=== PATIENT | female | born 1945 | race Caucasian/White ===

== ENCOUNTER 2022-06-12 12:05 | Inpatient (IN) | payer OTHER ==
[~2022-06-12] VITALS: Ht 167.6 cm; Wt 52.9 kg
[2022-06-12] MEDS ORDERED: SODIUM CHLORIDE 0.9% 500 ML IVB ONE (12:15)
[2022-06-12 12:48] LABS: Basophils # (auto) 0 10 ^3/uL (0-0.2); Basophils % (auto) 0.5 % (0.0-2.0); Eosinophils # (auto) 0 10 ^3/uL (0-0.8); Eosinophils % (auto) 0.1 % (0.0-7.0); Hematocrit 42.6 % (36.0-46.0); Hemoglobin 14.2 g/dL (12.2-16.2); Lymphocytes # (auto) 1.3 10 ^3/uL (0.4-5.4); Lymphocytes % (auto) 12.7 % (10.0-50.0); Mean Corpuscular Hemoglobin 31.9 pg (28.0-32.0); Mean Corpuscular Hgb Conc. 33.3 g/dL (32.0-36.0); Mean Corpuscular Volume 95.9 fL (80.0-100.0); Monocytes # (auto) 0.5 10 ^3/uL (0-1.3); Monocytes % (auto) 5.2 % (0.0-12.0); Neutrophils # (auto) 8.3 10 ^3/uL (1.6-8.6); Neutrophils % (auto) 81.5 % (37.0-80.0); Red Blood Cells 4.44 10^6/uL (4.0-5.20); Red Cell Distribution Width 13.4 % (11.8-14.3); White Blood Cell 10.1 10^3/uL (4.4-10.8)
[2022-06-12 13:08] LABS: Albumin 3.7 g/dL (3.4-5.0); Anion Gap 8 (5-15); Blood Alcohol < 3.0 mg/dL (0-5); Blood Urea Nitrogen 10 mg/dL (7-18); Calcium 8.9 mg/dL (8.5-10.1); Carbon Dioxide 28 mmol/L (21-32); Chloride 103 mmol/L (98-107); Glucose 117 mg/dL (74-106); Magnesium 2.3 mg/dL (1.6-2.6); Potassium 3.6 mmol/L (3.5-5.1); Sodium 139 mmol/L (136-145)
[2022-06-12 13:11] LABS: Alanine Aminotransferase 551 U/L (13-56); Alkaline Phosphatase 190 U/L (45-117); Aspartate Aminotransferase 116 U/L (15-37); BUN/Creatinine Ratio 16.4; Bilirubin, Total 0.7 mg/dL (0.2-1.0); GFR African American 122 mL/min; GFR Non-African American 101 mL/min; Total Protein 6.5 g/dL (6.4-8.2)
[2022-06-12 13:24] LABS: INR 0.98 (0.9-1.15); Partial Thromboplastin Time 26.9 sec (24.6-33.4)
[2022-06-12 15:45] LABS: Urine Bacteria FEW /hpf (None Seen); Urine Blood 2+ /uL (Negative); Urine WBC 3 /hpf (0 - 5)
[2022-06-12] MEDS ORDERED: HYDROcodone-ACET 5/325MG TAB PO PRN (17:15)
[2022-06-12] MEDS ORDERED: ACETAMINOPHEN 325 MG TAB PO PRN (17:15)
[2022-06-12] MEDS ORDERED: MORPHINE SULFATE INJ 2 MG/ml SYRG IV PRN (17:15)
[2022-06-12] MEDS ORDERED: DOCUSATE SOD 100 MG CAP PO PRN (17:15)
[2022-06-12] MEDS ORDERED: LOSARTAN POTASSIUM 50 MG TAB PO ONE (19:00)
[2022-06-12] MEDS ORDERED: hydrALAZINE HCL 20 MG/ML VL IV ONE (20:15)
[2022-06-12] MEDS ORDERED: LOSARTAN POTASSIUM 50 MG TAB PO SCH (22:00)
[2022-06-12] MEDS: LOSARTAN POTASSIUM 50 MG TAB PO SCH (23:22)
[2022-06-13 05:18] LABS: Albumin 3.6 g/dL (3.4-5.0); Potassium 3.4 mmol/L (3.5-5.1)
[2022-06-13 05:21] LABS: BUN/Creatinine Ratio 17.9; Basophils # (auto) 0 10 ^3/uL (0-0.2); Basophils % (auto) 0.5 % (0.0-2.0); Bilirubin, Total 0.9 mg/dL (0.2-1.0); Eosinophils # (auto) 0 10 ^3/uL (0-0.8); Eosinophils % (auto) 0.4 % (0.0-7.0); Hematocrit 42.1 % (36.0-46.0); Hemoglobin 14.3 g/dL (12.2-16.2); Lymphocytes # (auto) 2.2 10 ^3/uL (0.4-5.4); Lymphocytes % (auto) 22.8 % (10.0-50.0); Mean Corpuscular Hemoglobin 32.9 pg (28.0-32.0); Mean Corpuscular Volume 96.7 fL (80.0-100.0); Monocytes # (auto) 0.6 10 ^3/uL (0-1.3); Monocytes % (auto) 6.1 % (0.0-12.0); Neutrophils # (auto) 6.7 10 ^3/uL (1.6-8.6); Neutrophils % (auto) 70.2 % (37.0-80.0); Red Blood Cells 4.36 10^6/uL (4.0-5.20); Red Cell Distribution Width 13.9 % (11.8-14.3); Total Protein 6.8 g/dL (6.4-8.2); White Blood Cell 9.5 10^3/uL (4.4-10.8)
[2022-06-13] MEDS: LOSARTAN POTASSIUM 50 MG TAB PO SCH ×2 (10:14→23:32)
[2022-06-13] MEDS: ENOXAPARIN SOD 40 MG/0.4 ML SYRINGE SC SCH (10:14)
[2022-06-13] MEDS ORDERED: cefTRIAXone 1GM/50ML D5W 50 ML IV ONE (12:45)
[2022-06-13] MEDS ORDERED: POTASSIUM CHL 20 Meq TABLET PO ONE (12:45)
[2022-06-13 13:30] LABS: Hepatitis B Surface Antibody Negative (Negative)
[2022-06-13] MEDS ORDERED: HALOPERIDOL LACTATE 5 MG/ML INJ VIAL IM PRN (14:45)
[2022-06-13] MEDS ORDERED: hydrALAZINE HCL 20 MG/ML VL IV PRN (15:45)
[2022-06-13] MEDS ORDERED: ATOR40TA52 PO (22:34)
[2022-06-13] MEDS ORDERED: LATA0.0019 EACHEYE (22:34)
[2022-06-13] MEDS ORDERED: LOS25T PO (22:34)
[2022-06-13] MEDS ORDERED: DONE5TAB80 PO (22:34)
[2022-06-13] MEDS: DONEPEZIL HYDROCHLORIDE 5 MG TAB PO SCH (23:31)
[2022-06-14 05:00] VITALS: BP 144/67
[2022-06-14 06:03] LABS: Basophils # (auto) 0.1 10 ^3/uL (0-0.2); Basophils % (auto) 0.8 % (0.0-2.0); Eosinophils # (auto) 0.1 10 ^3/uL (0-0.8); Eosinophils % (auto) 1.9 % (0.0-7.0); Hemoglobin 12.7 g/dL (12.2-16.2); Lymphocytes # (auto) 1.7 10 ^3/uL (0.4-5.4); Lymphocytes % (auto) 21.4 % (10.0-50.0); Mean Corpuscular Hemoglobin 32.8 pg (28.0-32.0); Mean Corpuscular Hgb Conc. 34.4 g/dL (32.0-36.0); Mean Corpuscular Volume 95.3 fL (80.0-100.0); Monocytes # (auto) 0.5 10 ^3/uL (0-1.3); Monocytes % (auto) 6.4 % (0.0-12.0); Neutrophils # (auto) 5.5 10 ^3/uL (1.6-8.6); Neutrophils % (auto) 69.5 % (37.0-80.0); Nucleated Red Blood Cells % 0.2 %; Red Blood Cells 3.88 10^6/uL (4.0-5.20); Red Cell Distribution Width 13.3 % (11.8-14.3); White Blood Cell 7.9 10^3/uL (4.4-10.8)
[2022-06-14 06:23] LABS: BUN/Creatinine Ratio 29.5; Calcium 8.4 mg/dL (8.5-10.1); Potassium 3.4 mmol/L (3.5-5.1)
[2022-06-14 08:00] VITALS: BP 128/81
[2022-06-14] MEDS: cefTRIAXone 1GM/50ML D5W 50 ML IV SCH (09:14)
[2022-06-14] MEDS ORDERED: POTASSIUM CHL 20 Meq TABLET PO ONE (09:15)
[2022-06-14] MEDS: ENOXAPARIN SOD 40 MG/0.4 ML SYRINGE SC SCH (11:30)
[2022-06-14] MEDS: LOSARTAN POTASSIUM 50 MG TAB PO SCH ×2 (11:31→22:21)
[2022-06-14 17:00] VITALS: BP 149/78
[2022-06-14 22:00] VITALS: BP 154/74
[2022-06-14] MEDS: DONEPEZIL HYDROCHLORIDE 5 MG TAB PO SCH (22:21)
[2022-06-15 05:00] VITALS: BP 163/84
[2022-06-15 06:11] LABS: Potassium 3.7 mmol/L (3.5-5.1)
[2022-06-15 06:16] LABS: BUN/Creatinine Ratio 27.5; Calcium 8.3 mg/dL (8.5-10.1)
[2022-06-15 08:22] VITALS: BP 139/76
[2022-06-15] MEDS: cefTRIAXone 1GM/50ML D5W 50 ML IV SCH (09:08)
[2022-06-15] MEDS: ENOXAPARIN SOD 40 MG/0.4 ML SYRINGE SC SCH (11:00)
[2022-06-15] MEDS: LOSARTAN POTASSIUM 50 MG TAB PO SCH (11:00)
[2022-06-15 15:31] VITALS: BP 138/81
== END 2022-06-15 18:30 | disposition home health service (06) | DRG 71 ==
LOC: ER 12:05 → EDBD 12:05 → TELE 17:19 → TELE-WESTW 06-13 21:54
PROVIDERS: ADMIT Internal Medicine; ATTEND Internal Medicine Geriatric Medicine
DX: G93.41 Metabolic encephalopathy (principal); G91.0 Communicating hydrocephalus; N39.0 Urinary tract infection, site not specified; E78.5 Hyperlipidemia, unspecified; E87.6 Hypokalemia; F03.90 Unspecified dementia, unspecified severity, without behavioral disturbance, psychotic disturbance, mood disturbance, and anxiety; I10 Essential (primary) hypertension; Z20.822 Contact with and (suspected) exposure to COVID-19; Z86.73 Personal history of transient ischemic attack (TIA), and cerebral infarction without residual deficits
CPT/HCPCS: 36415; 70450; 70551; 71045; 80048; 80053; 80320; 81001; 82140; 83735; 84484; 85025; 85610; 85730; 86703; 86706; 86803; 87086; 87340; 93005; 96361; 96374; 97163; G0378; J0696

== ENCOUNTER 2023-05-10 10:11 | Emergency (ER) | payer OTHER ==
[~2023-05-10] VITALS: Ht 160 cm; Wt 40.0 kg
[~2023-05-10 10:11] MED LIST: ATOR40TA52 PO; DONE5TAB80 PO; LATA0.008 EACHEYE; LOS25T PO
[2023-05-10] MEDS ORDERED: SODIUM BICARBONATE 8.4% INJ 50ML SYRINGE IV ONE (10:12)
[2023-05-10] MEDS ORDERED: EPINEPHrine HCL 1 MG/10 ML SYRG IV ONE (10:12)
[2023-05-10] MEDS ORDERED: CALCIUM CHLOR(10%) 100MG/ML 10ML SYRINGE IV ONE (10:12)
[2023-05-10 10:15] VITALS: PULSE 68; RESP 16; TEMP 97.9; O2SAT 91
[2023-05-10 10:21] VITALS: BP 113/91; PULSE 65; RESP 15; O2SAT 90
[2023-05-10] MEDS ORDERED: NOREPINEPHRINE 8 MG/250ML KIT 250 ML IV ONE (10:32)
[2023-05-10] MEDS ORDERED: NOREPINEPHRINE 8 MG/250ML KIT 250 ML IV SCH (10:38)
[2023-05-10] MEDS ORDERED: ANGIOMAX 250 MG VIAL IV ONE (10:38)
[2023-05-10] MEDS ORDERED: SODIUM CHL 0.9% 0 ML ONE (10:38)
[2023-05-10] MEDS ORDERED: fentaNYL CITRATE 100 MCG/2 ML VL ONE (10:38)
[2023-05-10] MEDS ORDERED: MIDAZOLAM HCL 2MG/2ML 2ml VIAL (1mg/ml) ONE (10:38)
[2023-05-10] MEDS ORDERED: HEPARIN SODIUM (PORCINE) 5000 UNITS/ML 1ML VIAL ONE (10:40)
[2023-05-10] MEDS ORDERED: IODIXANOL 320MG/ML 100ML BTL IV ONE (10:43)
[2023-05-10] MEDS ORDERED: LIDOCAINE 2%HCL (LOCAL ANESTH.) INJ 20ML MDV ONE (10:43)
[2023-05-10] MEDS ORDERED: VERAPAMIL 2.5MG/ML INJ 2ML VIAL IV ONE (10:44)
== END 2023-05-10 10:46 ==
LOC: ER 10:11 → EDBD 10:11 → ER 10:46
DX: I46.9 Cardiac arrest, cause unspecified (principal); I10 Essential (primary) hypertension; Z79.899 Other long term (current) drug therapy
CPT/HCPCS: 36600; 71045; 82805; 92950; 99291; C1894; J0171; J1644; Q9967; J2250